=== PATIENT | female | born 1950 | race African-American/Black ===

== ENCOUNTER 2019-03-07 10:06 | Day surgery (SDC) ==
[2019-03-02 08:30] LABS: URINE SOURCE CLEAN CATCH
[2019-03-02 09:04] LABS: BASO# 0.05 X1000 (0.0-0.2); BASO% 0.8 % (0.0-0.8); EOS# 0.25 X1000 (0.0-0.7); HEMATOCRIT 42.5 % (37.0-47.0); HEMOGLOBIN 13.6 g/dL (12.0-16.0); LYMPH# 2.77 X1000 (1.2-3.4); LYMPH% 44.2 % (20.5-51.1); MCH 29.7 PG (27-31); MCV 92.8 FL (81-99); MONO# 0.91 X1000 (0.11-0.59); MONO% 14.5 % (1.7-9.3); MPV 10.2 FL (7.4-10.4); NEUT# 2.29 X1000 (1.4-6.5); NEUT% 36.5 % (42.2-75.2); PLT 268 X1000 (130-400); RBC 4.58 XMIL (4.2-5.4); RDW 12.8 % (11.5-14.5); WBC 6.27 X1000 (4.8-10.8)
[2019-03-02 09:07] LABS: BILIRUBIN URINE NEGATIVE (NEGATIVE); BLOOD URINE NEGATIVE (NEGATIVE); COLOR YELLOW; GLUCOSE URINE NEGATIVE (NEGATIVE); KETONE URINE NEGATIVE (NEGATIVE); LEUKOCYTES URINE SMALL (NEGATIVE); NITRITE URINE NEGATIVE (NEGATIVE); PH URINE 6.5; PROTEIN URINE TRACE mg/dL (NEGATIVE); SP GRAVITY URINE 1.018; TURBIDITY URINE CLEAR (CLEAR); UROBILINOGEN URINE NORMAL (NORMAL)
[2019-03-02 09:12] LABS: INR 1.01; PROTIME 14.1 Seconds (11.0-16.0); UR EPITHELIAL CELLS <10 /HPF (<10); URINE BACTERIA NEGATIVE /HPF; URINE RBC <10 /HPF (<10); URINE WBC <10 /HPF (<10)
--- NOTE | 2019-03-02 09:15 | EKG Report ---
Test Performed on : 03/02/2019 07:19:31 AM Test Reason : PAT Blood Pressure : / mmHG Vent. Rate : 086 BPM Atrial Rate : 086 BPM P-R Int : 162 ms QRS Dur : 134 ms QT Int : 402 ms P-R-T Axes : 065 -48 005 degrees QTc Int : 481 ms Normal sinus rhythm. Right bundle branch block Left anterior fascicular block Bifascicular block Septal infarct , age undetermined Abnormal ECG No previous ECGs available Confirmed by Ye Ybarra MD ([id number]) on 03/02/2019 6:04:59 PM
[2019-03-02 09:25] LABS: AGAP 10; ALBUMIN 4.2 g/dL (3.5-5.0); BUN 15 mg/dL (8-22); CALCIUM 9.1 mg/dL (8.8-10.2); CHLORIDE 104 mmol/L (98-107); COSMO 284; CREATININE 0.9 mg/dL (0.5-0.9); ESTIMATED GFR > 60; GLUCOSE 105 mg/dL (70-104); POTASSIUM 4.1 mmol/L (3.5-5.1); SODIUM 142 mmol/L (136-145); TCO2 28 mmol/L (25-35)
[2019-03-02 09:37] LABS: HEMOGLOBIN A1C 5.9 % (4.8-6.0)
[2019-03-07] MEDS ORDERED: DIPRIVAN 1% ONE ×2 (10:15→15:16)
[2019-03-07] MEDS ORDERED: FENTANYL ONE (10:16)
[2019-03-07] MEDS ORDERED: ROBINUL ONE (10:27)
[2019-03-07] MEDS ORDERED: XYLOCAINE-MPF 2% ONE (10:27)
[2019-03-07] MEDS ORDERED: CELEBREX ONE (11:12)
[2019-03-07] MEDS ORDERED: REGLAN ONE (11:12)
[2019-03-07] MEDS ORDERED: PEPCID ONE (11:12)
[2019-03-07] MEDS ORDERED: LYRICA ONE (11:12)
[2019-03-07] MEDS ORDERED: COLACE ONE (11:12)
[2019-03-07] MEDS ORDERED: LR 1,000 ML ONE (11:13)
[2019-03-07] MEDS ORDERED: KEFZOL 1 GM/D5W 2 GM/100 ML IVPB ONE (11:13)
[2019-03-07] MEDS ORDERED: DURAMORPH ONE (12:34)
[2019-03-07] MEDS ORDERED: VANCOMYCIN ONE (12:34)
[2019-03-07] MEDS ORDERED: TORADOL ONE ×2 (12:34→13:52)
[2019-03-07] MEDS ORDERED: MARCAINE 0.25% PF/EPI 1:200,000 ONE (12:34)
[2019-03-07] MEDS ORDERED: SODIUM CHLORIDE 0.9% ONE (12:35)
[2019-03-07] MEDS ORDERED: EXPAREL 1.3% ONE (12:35)
[2019-03-07] MEDS ORDERED: CYKLOKAPRON 1,000 MG/NS 2,000 MG/200 ML IVPB ONE (12:35)
[2019-03-07] MEDS ORDERED: NEOSPORIN G.U. IRRIGANT ONE (12:35)
[2019-03-07] MEDS ORDERED: OFIRMEV 1000 MG/ISOTONIC SOLN 1,000 MG/100 ML BOTTLE ONE (13:52)
[2019-03-07] MEDS ORDERED: DECADRON ONE (13:52)
[2019-03-07] MEDS ORDERED: LABETALOL (DOSE) ONE (15:29)
[2019-03-07] MEDS ORDERED: NS 1,000 ML ONE (16:10)
[2019-03-07 16:14] LABS: URINE SOURCE CATH
[2019-03-07 16:26] LABS: BILIRUBIN URINE NEGATIVE (NEGATIVE); BLOOD URINE NEGATIVE (NEGATIVE); COLOR STRAW; GLUCOSE URINE NEGATIVE (NEGATIVE); KETONE URINE NEGATIVE (NEGATIVE); LEUKOCYTES URINE NEGATIVE (NEGATIVE); NITRITE URINE NEGATIVE (NEGATIVE); PH URINE 6.5; PROTEIN URINE NEGATIVE (NEGATIVE); SP GRAVITY URINE 1.008; TURBIDITY URINE CLEAR (CLEAR); UR EPITHELIAL CELLS <10 /HPF (<10); URINE BACTERIA NEGATIVE /HPF; URINE RBC <10 /HPF (<10); URINE WBC <10 /HPF (<10); UROBILINOGEN URINE NORMAL (NORMAL)
[2019-03-07] MEDS ORDERED: ZOFRAN ODT PO PRN (17:15)
[2019-03-07] MEDS ORDERED: ZOFRAN IV PRN (17:15)
[2019-03-07] MEDS ORDERED: MORPHINE IV PRN ×3 (17:15)
[2019-03-07] MEDS ORDERED: OXY IR PO PRN ×2 (17:15)
[2019-03-07] MEDS: NS 1,000 ML IV SCH (17:28)
--- NOTE | 2019-03-07 17:44 | OPERATIVE NOTE ---
PROCEDURE DATE: 03/07/2019 PREOPERATIVE DIAGNOSIS: Left knee degenerative joint disease. POSTOPERATIVE DIAGNOSIS: Left knee degenerative joint disease. PROCEDURE PERFORMED: Left total knee arthroplasty using [facility] size 7 femoral component, a size 7 tibial base plate, a 14 mm articular insert, a 38 mm patellar component. ANESTHESIA: Spinal. SURGEON: Arun Acosta MD ASSIST: Shazia Coronado PA-C, who was present throughout the case. Her assistance was critical for exposure, placement of the implant, and closure. Her assistance was critical for the success of the case. BLOOD LOSS: Minimal. DRAIN: Hemovac x1. TOURNIQUET TIME: Approximately an hour and a half. DESCRIPTION OF PROCEDURE: The patient was brought to the operative suite and placed in the supine position. After successful administration of spinal anesthesia, a well-padded tourniquet was placed on the left proximal thigh and the left lower extremity was prepped and draped in the usual sterile fashion. The knee was exsanguinated and tourniquet insufflated to 350 torr. A longitudinal incision was made beginning at the superior pole of the patella and extended distally to the tibia tuberosity. A full-thickness skin flap was elevated medially. A medial arthrotomy was made and then the medial capsule was elevated off the medial tibial plateau. The ACL, PCL, medial meniscus, and lateral meniscus were excised. A drill was entered into the center of distal femur. Intramedullary guide was placed. Distal cutting block was pinned into place. Distal cut was made with an oscillating saw. Marginal osteophytes were removed with a rongeur. Attention was directed to the tibia. A drill was entered into the tibia. Intramedullary guide was placed. Alignment checked with drop king referencing off the anterior cortex of the tibia and the second ray of the foot, taking 4 mm off the low side of the tibia, which in this case was medially. The tibial cutting block was pinned into place and the articular surface of the tibial plateau was removed with an oscillating saw. Marginal osteophytes were removed with the rongeur. Extension gap was checked and found to be at 14 mm. Therefore, the flexion gap was set at 23 mm, and once this was set and rotation was properly set, the femoral cutting block was pinned into place and the anterior cuts, chamfer cuts, and posterior condylar cuts were made with the oscillating saw. The femur was sized to a size 7, so it was a size 7 cutting block. The box cutting block was pinned into place and the box cut was made with a box osteotome and an oscillating saw. Posterior condyle osteophytes were removed with a curved osteotome and a rongeur. Attention was then directed back to the tibia, sized to size 7. A size 7 guide was used for the fin punch, referencing with the drop king off the anterior cortex of the tibia and the second ray of the foot. Once this was properly positioned, the fin punch was used and then the tibial trial, femoral trial, and a 14 mm articular insert were placed and taken through range of motion. She was found to have excellent alignment, balancing, and range of motion. Attention was directed to the patella and 9 mm of the articular surface of patella was removed with the oscillating saw. Patella was sized to a size 38. A size 38 guide was used to drill peg holes. Lateral facet was chamfered 30 to 45 degrees. The patellar trial was placed and the knee was taken through range of motion and her patellar was found to sublux laterally. Therefore, a lateral release was performed and once this was completed, the patella tracked normally. All trials were removed and the knee was copiously irrigated and dried, being certain that all bone debris was removed. The tibial component, femoral component, and patellar component were cemented into place, excess cement being removed with a [place]. Once the cement had hardened, excess cement was again removed with an osteotome and the knee was again copiously irrigated and dried, being certain that all bone and cement debris was removed. The trial articular insert was removed. The knee was copiously infiltrated with Exparel, including the posterior capsule, anterior capsule, medial and lateral collateral ligaments, intermuscular and subcutaneous tissue. The tourniquet was deflated. Hemostasis was obtained with electrocautery. The definitive 14 mm articular insert was locked into place. A drain was placed exiting superolaterally and buried in the lateral gutter. The knee was again copiously irrigated with normal saline containing irrigant and Vashe irrigation. The medial arthrotomy was closed with #1 Vicryl. Skin edge was approximated with 2-0 Vicryl. Skin was closed with Prineo and a sterile dressing was applied. The patient tolerated the procedure well without complications. At the end of the procedure all counts were correct x2. The patient was transferred to the recovery room in stable condition. cc: Arun Acosta MD MTDD
[2019-03-07] MEDS: ULTRAM PO SCH ×2 (17:54→23:44)
[2019-03-07] MEDS: TYLENOL PO SCH (21:49)
[2019-03-07] MEDS: PERIDEX MT SCH (21:50)
[2019-03-07] MEDS: KEFZOL 2 GM/D5W 2 GM/50 ML IVPB IV SCH (21:50)
[2019-03-07] MEDS: LYRICA PO SCH (21:50)
[2019-03-07] MEDS: COLACE PO SCH (21:50)
[2019-03-08] MEDS: KEFZOL 2 GM/D5W 2 GM/50 ML IVPB IV SCH (05:10)
[2019-03-08] MEDS: NS 1,000 ML IV SCH ×2 (05:10→06:46)
[2019-03-08] MEDS: ULTRAM PO SCH (05:11)
[2019-03-08] MEDS: TYLENOL PO SCH (05:11)
[2019-03-08 06:06] LABS: HEMATOCRIT 35.3 % (37.0-47.0); HEMOGLOBIN 11.5 g/dL (12.0-16.0)
[2019-03-08 06:34] LABS: AGAP 11; BUN 10 mg/dL (8-22); CALCIUM 8.7 mg/dL (8.8-10.2); CHLORIDE 105 mmol/L (98-107); COSMO 281; CREATININE 0.8 mg/dL (0.5-0.9); ESTIMATED GFR > 60; GLUCOSE 151 mg/dL (70-104); POTASSIUM 4.3 mmol/L (3.5-5.1); SODIUM 140 mmol/L (136-145); TCO2 24 mmol/L (25-35)
[2019-03-08] MEDS ORDERED: DECADRON IV ONE (09:00)
[2019-03-08] MEDS ORDERED: PEPCID PO SCH (09:00)
[2019-03-08] MEDS ORDERED: ASPIRIN PO SCH (09:00)
[2019-03-08] MEDS ORDERED: CELEBREX PO SCH (09:00)
[2019-03-08] MEDS: LYRICA PO SCH (09:30)
[2019-03-08] MEDS: COLACE PO SCH (09:31)
[2019-03-08] MEDS: PERIDEX MT SCH (09:31)
[2019-03-08 11:44] VITALS: BP 140/62
[2019-03-08] MEDS ORDERED: NORVASC PO SCH (21:00)
[2019-03-08] MEDS ORDERED: GLUCOPHAGE XR PO SCH (21:00)
--- NOTE | 2019-03-09 03:02 | DISCHARGE SUMMARY ---
ADMISSION DATE: 03/07/2019 DISCHARGE DATE: 03/08/2019 DISCHARGE DIAGNOSIS: Left knee degenerative joint disease, status post left total knee arthroplasty. DISCHARGE MEDICATIONS: See discharge medication list. DISPOSITION: The patient is discharged home with home health. DISCHARGE INSTRUCTIONS: Instructions for total knee arthroplasty protocol and instructed to return to see Dr. Acosta next . HOSPITAL COURSE: On the day of admission, the patient underwent a left total knee arthroplasty. Her postoperative course was unremarkable. At discharge, she is afebrile. Tolerating a regular diet. She has had some nausea and vomiting but has improved. At discharge, her hemoglobin is 11.5 and her hematocrit is 35.3. She has had 150 mL of drainage from her Hemovac drain in the last 8 hours, which we have discontinued. Her left knee dressing is clean, dry, and intact. Her left leg is grossly neurovascularly intact. She is discharged home after working with physical therapy with instructions to follow up as described above. Dictated by ANGELICA Caraballo for Arun Acosta MD cc: ANGELICA Caraballo MD
== END 2019-03-08 15:07 | disposition home or self-care (01) ==
LOC: OR 10:06 → 4N 10:06 → OR 03-08 15:07
PROVIDERS: ATTEND Orthopaedic Surgery
CPT/HCPCS: 80048; 81001; 82040; 83036; 85014; 85018; 85025; 85610; 85730; 86850; 86900; 86901; 88305; 88311; 93005; 93010; 94761; 94799; 97110; 97162; 97530; A9270; C9290; J0131; J0690; J1100; J1885; J2274; J2275; J2405; J3010; J3370; J7030; J7120; Q9974; S0020